=== PATIENT | male | born 2000 | race Caucasian/White ===

== ENCOUNTER 2022-03-13 01:51 | Emergency (ER) | payer OTHER ==
[~2022-03-13] VITALS: Ht 170.2 cm; Wt 61.2 kg
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
[2022-03-13] MEDS ORDERED: HYDROCODONE/APAP 5/325MG TABLET PO ONE (02:30)
[2022-03-13] MEDS ORDERED: HYDROCODONE/APAP 5/325MG TABLET ONE (02:30)
[2022-03-13] MEDS ORDERED: AMOX/CLAVULANATE 875 MG TABLET PO ONE (04:00)
[2022-03-13] MEDS ORDERED: HYDR-4275 PO (04:02)
[2022-03-13] MEDS ORDERED: AMOX-430 PO (04:02)
[2022-03-13] MEDS ORDERED: AMOX/CLAVULANATE 875 MG TABLET ONE (04:04)
[2022-03-13 04:10] VITALS: BP 131/73
--- NOTE | 2022-03-13 04:11 | NUR ---
Patient discharged to home in stable condition. Written and verbal after care instructions given. Patient verbalizes understanding of instruction.
== END 2022-03-13 04:11 | disposition home or self-care (01) ==
LOC: ER 02:00
DX: S02.31XA Fracture of orbital floor, right side, initial encounter for closed fracture (principal); S02.40EA Zygomatic fracture, right side, initial encounter for closed fracture; Z79.899 Other long term (current) drug therapy; Y04.8XXA Assault by other bodily force, initial encounter; Y93.89 Activity, other specified; Y92.89 Other specified places as the place of occurrence of the external cause; Y99.8 Other external cause status
CPT/HCPCS: 70450-TC; 70486-TC